=== PATIENT | female | born 1945 | race Caucasian/White ===

== ENCOUNTER 2018-12-13 13:54 | Inpatient (IN) | payer MEDICARE, OTHER ==
[~2018-12-13] VITALS: Ht 152.4 cm; Wt 69.5 kg
[2018-12-15 09:25] VITALS: BP 128/75
== END 2018-12-15 12:18 | disposition home or self-care (01) | DRG 445 ==
LOC: ED 19:53 → EDIP 19:57 → 4NOR 20:39 → DCLOUNGE 12-15 12:05
PROVIDERS: ADMIT Internal Medicine; ATTEND Internal Medicine
PROC: 0FC98ZZ Extirpation of Matter from Common Bile Duct, Via Natural or Artificial Opening Endoscopic (ICD-10-PCS; principal; 2018-12-14)
PROC: BF101ZZ Fluoroscopy of Bile Ducts using Low Osmolar Contrast (ICD-10-PCS; 2018-12-14)
DX: K80.50 Calculus of bile duct without cholangitis or cholecystitis without obstruction (principal); E87.2 Acidosis; D72.829 Elevated white blood cell count, unspecified; Z88.8 Allergy status to other drugs, medicaments and biological substances; E78.5 Hyperlipidemia, unspecified; E86.0 Dehydration; E87.6 Hypokalemia; I10 Essential (primary) hypertension; K76.0 Fatty (change of) liver, not elsewhere classified; N28.1 Cyst of kidney, acquired; Z80.0 Family history of malignant neoplasm of digestive organs; K75.9 Inflammatory liver disease, unspecified; E87.8 Other disorders of electrolyte and fluid balance, not elsewhere classified
CPT/HCPCS: 36415; 71045; 74177; 74328; 76700; 80053; 81001; 83690; 84484; 85025; 87086; 93005; 96374; 96375; 99285; G0378; J0690; J1100; J2405; J2704; J2710; J3010; J3480; Q9967; C1769; C9113; J0330; J2270; J3490; J7120; Q0163